=== PATIENT | male | born 1995 | race Hispanic/Latino ===

== ENCOUNTER 2018-04-08 01:19 | Emergency (ER) | payer OTHER | END 2018-04-08 02:30 | disposition left against medical advice (07) | LOC: EDH 01:19 | DX: K52.9 Noninfective gastroenteritis and colitis, unspecified (principal); Z53.21 Procedure and treatment not carried out due to patient leaving prior to being seen by health care provider; Z72.0 Tobacco use | CPT/HCPCS: 99281 ==

== ENCOUNTER 2023-08-06 15:22 | Emergency (ER) | payer OTHER ==
[~2023-08-06] VITALS: Ht 170.2 cm; Wt 65.8 kg
[2023-08-06 15:50] VITALS: BP 115/41; PULSE 103; RESP 20
[2023-08-06 16:33] LABS: SARS-CoV-2, RNA, NAAT NEGATIVE SARS CoV-2 (NEGATIVE)
[2023-08-06 16:43] LABS: RAPID GROUP A STREP negative (NEGATIVE)
[2023-08-06 16:44] LABS: INFLUENZA TYPE B Negative For Type B (NEGATIVE)
[2023-08-06 16:51] LABS: INFLUENZA TYPE A Positive For Type A (NEGATIVE)
== END 2023-08-06 19:55 | disposition left against medical advice (07) ==
LOC: EDH 15:22
DX: M79.10 Myalgia, unspecified site (principal); R05.9 Cough, unspecified; Z20.822 Contact with and (suspected) exposure to COVID-19; Z53.21 Procedure and treatment not carried out due to patient leaving prior to being seen by health care provider
CPT/HCPCS: 87635; 87804; 87880; 99281